=== PATIENT | female | born 1995 | race Caucasian/White ===

== ENCOUNTER 2022-01-22 09:39 | Outpatient (CLI) | payer BC, OTHER ==
[2022-01-22 17:37] LABS: SARS-CoV-2 PCR by NAA Not Detected (NotDetected)
== END 2022-01-22 09:40 | disposition home or self-care (01) ==
LOC: CSHLAB 09:39
PROVIDERS: ATTEND Obstetrics & Gynecology
DX: Z20.822 Contact with and (suspected) exposure to COVID-19 (principal)
CPT/HCPCS: U0003; U0005

== ENCOUNTER 2022-01-26 05:30 | Inpatient (IN) | payer BC, OTHER ==
[~2022-01-26 05:30] MED LIST: Acetaminophen 500 MG TAB PO PRN; Butorphanol Tartrate 1 MG/ML VIAL SLOW IVP PRN; Carboprost 250 MCG/ML AMP IM PRN; Diphenoxylate HCl/Atropine Tablet PO PRN; Docusate 100 MG CAP PO PRN; HYDROcodone/Acetaminophen 5/325 mg Tablet PO PRN; Ibuprofen 800 MG TAB PO PRN; Lidocaine 1% (PF) 30 ML VIAL SC PRN; Methylergonovine 0.2 MG/ML VIAL IM PRN; Misoprostol 200 MCG TAB PR PRN; NS w/ Oxytocin 30 units 500 ML IV SCH; Ondansetron PF 4 MG/2 ML Vial IVP PRN; Promethazine HCl 25 MG/ML VIAL IM PRN; hydrALAZINE 20 MG/ML VIAL SLOW IVP PRN
[2022-01-26] MEDS: Lactated Ringer's 1,000 ML IV SCH ×4 (07:44→16:42)
[2022-01-26] MEDS ORDERED: Bupivacaine 0.25% HCL 30 ML VIAL ONE (08:00)
[2022-01-26 08:04] LABS: Hemoglobin 12.6 g/dL (12.0-15.5); Mean Corpuscular Hemoglobin 30.6 pg (27.0-33.0); Mean Platelet Volume 10.2 fl (7.4-10.4); Platelet Count 209 10x3/uL (150-450); RBC Distribution Width 13.2 % (11.5-14.5); Red Blood Cell (RBC) Count 4.12 10x6/uL (3.90-5.03); White Blood Cell (WBC) Count 9.2 10x3/uL (3.5-10.5)
[2022-01-26 08:09] VITALS: BMI 36.6
[2022-01-26 08:42] LABS: Hep B Surf Ag Non-Reactive S/CO (NonReactive); Syphilis Antibody Nonreactive (Nonreactive); Syphilis Antibody Index 0.04 S/CO (<1.00 Non-Reactive)
[2022-01-26 08:46] LABS: HBSAg Index 0.14 S/CO (0-0.99)
[2022-01-26] MEDS: Misoprostol 100 MCG TAB VAG SCH ×5 (09:42→21:41)
[2022-01-26] MEDS: ePHEDrine Sulfate 50 MG/10 ML VIAL SLOW IVP PRN ×2 (10:15→11:19)
[2022-01-26] MEDS ORDERED: Acetaminophen 325 MG TAB PO PRN (10:19)
[2022-01-26] MEDS ORDERED: Naloxone HCl 0.4 mg/ml Vial IVP PRN ×2 (10:19)
[2022-01-26] MEDS ORDERED: Ondansetron PF 4 MG/2 ML Vial IVP PRN ×2 (10:19→18:48)
[2022-01-26] MEDS ORDERED: diphenhydrAMINE 50 MG/ML VIAL IVP PRN (10:19)
[2022-01-26] MEDS ORDERED: Lactated Ringer's 500 ML IV PRN (10:19)
[2022-01-26] MEDS ORDERED: Hydrocerin (Eucerin) Cream 120 gm Jar TOP PRN (10:19)
[2022-01-26] MEDS ORDERED: Promethazine HCl 25 MG/ML VIAL IM PRN ×2 (10:19→18:48)
[2022-01-26] MEDS ORDERED: Fentanyl 2 mcg/Bupivacaine 0.1% Cassette 100 ML EPIDURAL SCH (10:30)
[2022-01-26] MEDS ORDERED: Communication Order-Pharmacy FS SCH (10:30)
[2022-01-26] MEDS ORDERED: Lanolin Ointment 7 GM TUBE TOP PRN (18:48)
[2022-01-26] MEDS ORDERED: Varicella virus, LIVE 0.5 ML VIAL SC ONE (18:48)
[2022-01-26] MEDS ORDERED: Zolpidem Tartrate 5 MG TAB PO PRN (18:48)
[2022-01-26] MEDS ORDERED: HYDROcodone/Acetaminophen 5/325 mg Tablet PO PRN (18:48)
[2022-01-26] MEDS ORDERED: Preparation H Ointment 28 GM TUBE PR PRN (18:48)
[2022-01-26] MEDS ORDERED: Benzocaine-Menthol 82.5 ML CAN TOP PRN (18:48)
[2022-01-26] MEDS ORDERED: NS w/ Oxytocin 30 units 500 ML IV SCH (18:48)
[2022-01-26] MEDS ORDERED: hydrALAZINE 20 MG/ML VIAL SLOW IVP PRN (18:48)
[2022-01-26] MEDS ORDERED: Milk Of Magnesia 30 ML UDCUP PO PRN (18:48)
[2022-01-26] MEDS ORDERED: diphenhydrAMINE 25 MG CAP PO PRN (18:48)
[2022-01-26] MEDS ORDERED: Measles/Mumps/Rubella 10 MCG/0.5 ML VIAL SC ONE (18:48)
[2022-01-26] MEDS ORDERED: Bisacodyl 10 MG SUPP PR PRN (18:48)
[2022-01-26] MEDS ORDERED: Boostrix 0.5 ML (Tdap) VIAL IM ONE (18:48)
[2022-01-26] MEDS: Docusate 100 MG CAP PO SCH (21:19)
[2022-01-26] MEDS: HYDROcodone/Acetaminophen 5/325 mg Tablet PO PRN (23:55)
[2022-01-27 04:49] LABS: Hemoglobin 12.1 g/dL (12.0-15.5); Mean Corpuscular HGB CONC 33.5 g/dL (32.0-36.0); Mean Corpuscular Hemoglobin 30.6 pg (27.0-33.0); Mean Corpuscular Volume 91.4 fl (81.6-98.3); Mean Platelet Volume 10.3 fl (7.4-10.4); Platelet Count 210 10x3/uL (150-450); RBC Distribution Width 13.3 % (11.5-14.5); Red Blood Cell (RBC) Count 3.95 10x6/uL (3.90-5.03); White Blood Cell (WBC) Count 11.6 10x3/uL (3.5-10.5)
[2022-01-27] MEDS: Ibuprofen 800 MG TAB PO SCH ×3 (05:00→14:56)
[2022-01-27] MEDS: Ferrous Sulfate 325 MG TAB PO SCH ×2 (07:50→18:27)
[2022-01-27] MEDS: Docusate 100 MG CAP PO SCH (08:37)
[2022-01-27] MEDS: HYDROcodone/Acetaminophen 5/325 mg Tablet PO PRN ×2 (08:38→16:57)
[2022-01-27] MEDS ORDERED: Prenatal Vitamin 1 TAB PO SCH (09:00)
[2022-01-27 11:39] VITALS: BP 129/80; TEMP 98.5
== END 2022-01-27 18:50 | disposition home or self-care (01) | DRG 807 ==
LOC: CSHLD 05:33 → CSHPP 18:57 → CSHERHOLD 01-27 10:16
PROVIDERS: ADMIT Obstetrics & Gynecology; ATTEND Obstetrics & Gynecology
PROC: 10E0XZZ Delivery of Products of Conception, External Approach (ICD-10-PCS; principal; 2022-01-26)
PROC: 3E0P7VZ Introduction of Hormone into Female Reproductive, Via Natural or Artificial Opening (ICD-10-PCS; 2022-01-26)
PROC: 3E033VJ Introduction of Other Hormone into Peripheral Vein, Percutaneous Approach (ICD-10-PCS; 2022-01-26)
DX: O80 Encounter for full-term uncomplicated delivery (principal); Z37.0 Single live birth; Z3A.39 39 weeks gestation of pregnancy
CPT/HCPCS: 36415; 51702; 85027; 86780; 86850; 86900; 86901; 87340; J2210; J2590; J7120; S0020